=== PATIENT | female | born 1980 | race Two or more races ===

== ENCOUNTER 2020-09-18 21:18 | Emergency (ER) | payer OTHER ==
[~2020-09-18] VITALS: Ht 157.5 cm; Wt 60.8 kg
[2020-09-18] MEDS ORDERED: PRENATALES (21:30)
[2020-09-18] MEDS ORDERED: RELAFEN (21:41)
== END 2020-09-19 01:39 | disposition home or self-care (01) ==
LOC: ER 21:18
DX: O20.0 Threatened abortion (principal)

== ENCOUNTER 2020-09-21 05:11 | Emergency (ER) | payer OTHER ==
[~2020-09-21] VITALS: Ht 157.5 cm; Wt 60.8 kg
[~2020-09-21 05:11] MED LIST: PRENATALES; RELAFEN
[2020-09-21] MEDS ORDERED: MIDOL CAPLET1 EACH (05:24)
== END 2020-09-21 10:11 | disposition home or self-care (01) ==
LOC: ER 05:11
DX: O03.9 Complete or unspecified spontaneous abortion without complication (principal)